=== PATIENT | female | born 1995 | race Caucasian/White ===

== ENCOUNTER 2018-04-13 18:59 | Emergency (ER) | payer OTHER ==
[~2018-04-13] VITALS: Ht 175.3 cm; Wt 79.5 kg
[~2018-04-13 18:59] MED LIST: BUPROPION; FLUOXETINE; HYDROXYZINE
[2018-04-13] MEDS ORDERED: WELLBUTRIN 100100 MG PO (19:38)
[2018-04-13] MEDS ORDERED: PROZAC 10MG10 MG PO (19:38)
[2018-04-13 19:47] LABS: BASO # 0.1 (0.0-0.2); BASO % 0.6 % (0.0-2.0); EOS # 0.4 (0.0-0.7); EOS % 4.3 % (0-4.0); GRAN # 5.3 (1.4-6.5); GRAN % 59.6 % (42.2-75.2); HEMOGLOBIN 11.2 g/dl (12.0-15.0); LYMPH # 2.5 (1.2-3.4); LYMPH % 28.3 % (20.0-51.0); MEAN CELL VOLUME 79 fl (80.0-95.0); MEAN CORPUSCULAR HEMOGLOBIN 25 pg (26.0-32.0); MEAN CORPUSCULAR HGB CONC 32 g/dl (33.0-37.0); MONO # 0.6 (0.1-0.6); PLATELET COUNT 432 K/mm3 (130-400); RED BLOOD COUNT 4.52 M/mm3 (4.10-5.30); REDCELL DISTRIBUTION WIDTH-CV 13.6 % (11.5-14.5)
[2018-04-13 19:49] LABS: HEMATOCRIT 35.5 % (35.0-45.0)
[2018-04-13 19:55] LABS: BILIRUBIN,TOTAL 0.3 mg/dL (0.0-1.0); CREATININE, serum 0.73 mg/dL (0.52-1.25); TOTAL PROTEIN 7.4 gm/dL (6.4-8.2)
[2018-04-13 20:58] VITALS: BP 109/56; PULSE 86; TEMP 97.2
== END 2018-04-13 21:36 | disposition home or self-care (01) ==
LOC: COL.ER 18:59
PROVIDERS: Nurse Practitioner
DX: J06.9 Acute upper respiratory infection, unspecified (principal); R06.02 Shortness of breath; F32.9 Major depressive disorder, single episode, unspecified; F41.9 Anxiety disorder, unspecified

== ENCOUNTER 2018-12-22 15:12 | Emergency (ER) | payer OTHER ==
[~2018-12-22] VITALS: Ht 175.3 cm; Wt 90.9 kg
[~2018-12-22 15:12] MED LIST changes: +PROZAC 10MG10 MG PO; +WELLBUTRIN 100100 MG PO
[2018-12-22] MEDS ORDERED: DOXYCYCLINE 10100 MG PO (16:18)
[2018-12-22 16:23] VITALS: BP 124/84; PULSE 88; TEMP 98.8
== END 2018-12-22 16:32 | disposition home or self-care (01) ==
LOC: COL.ER 15:12
DX: N90.89 Other specified noninflammatory disorders of vulva and perineum (principal)